=== PATIENT | female | born 1965 | race Two or more races ===

== ENCOUNTER 2018-06-22 05:22 | Day surgery (SDC) | payer OTHER ==
[2018-06-22] VITALS (13 sets, daily range): BP systolic 102–124; BP diastolic 53–68
[~2018-06-22] VITALS: Ht 167.6 cm; Wt 72.6 kg
[~2018-06-22 05:22] MED LIST: SYNTHROID88 MCG ORAL
[2018-06-22] MEDS ORDERED: NS Irrig 4000ml IRRIG ONE (05:56)
[2018-06-22] MEDS ORDERED: LR 1000ml ONE (05:56)
[2018-06-22] MEDS ORDERED: celeBREX 200mg Cap **SURGERY PATIENTS ONLY ORAL ONE (06:00)
[2018-06-22] MEDS ORDERED: ceFAZolin 1gm IVPB IVPB ONE ×2 (06:00)
[2018-06-22] MEDS ORDERED: oxyCONTIN 20mg tab ORAL ONE (06:00)
[2018-06-22] MEDS ORDERED: Ketorolac 30mg Inj ONE ×2 (06:29→06:43)
[2018-06-22] MEDS ORDERED: Propofol 200mg/20ml IV ONE (06:29)
[2018-06-22] MEDS ORDERED: Lidocaine 1% MPF 10mg/ml 5ml ONE (06:29)
[2018-06-22] MEDS ORDERED: Midazolam 2mg/2ml Inj ONE (06:29)
[2018-06-22] MEDS ORDERED: fentaNYL 100 mcg/2 mL IV ONE (06:29)
[2018-06-22] MEDS ORDERED: Kenalog-40 1ml Vial ONE (06:43)
[2018-06-22] MEDS ORDERED: Morphine Sulfate PF 10 ML ONE (06:43)
[2018-06-22] MEDS ORDERED: Bupivacaine w/Epi 0.25% 30ml Vial INJ ONE (06:43)
[2018-06-22] MEDS ORDERED: Lidocaine 1% 10mg/ml/Epi 0.005mg/ml 30ml vial INJ ONE (06:43)
[2018-06-22] MEDS ORDERED: Bupivacaine 0.5% Inj 30 ml vial INJ ONE (06:43)
[2018-06-22] MEDS ORDERED: Dexamethasone 4mg/ml vial ONE (06:58)
--- NOTE | 2018-06-22 06:59 | Pre-Procedure Note/Attestation ---
Pre-Procedure Note/Attestation Complete Prior to Procedure Planned Procedure: left - knee arthroscopy, Procedure Narrative: knee arthroscopy, possible menisectomy/synovectomy Attestation I attest that I discussed the nature of the procedure; its benefits; risks and complications; and alternatives (and the risks and benefits of such alternatives ), prior to the procedure, with the patient (or the patient's legal sales representative uniforms). I attest that, if there was a reasonable possibility of needing a blood transfusion, the patient (or the patient's legal sales representative uniforms) was given the [facility] standardized written summary, pursuant to the [place] Blood Safety Act ([place] Health and Safety Code # 1645, as amended). I attest that I re-evaluated the patient just prior to the surgery and that there has been no change in the patient's H&P, except as documented below: Real Chu MD Jun 22, 2018 06:59
--- NOTE | 2018-06-22 07:00 | Operative Note - PDOC ---
Operative Note Operative Note Pre-op Diagnosis: left knee internal derangement Post-op Diagnosis: same as pre-op plus Operative Findings: consistent w/pre-op dx studies Anesthesia: MAC Specimen: none Complications: none Condition: stable Estimated Blood Loss: none Implant(s) used?: No Real Chu MD Jun 22, 2018 07:00
[2018-06-22] MEDS ORDERED: Duramorph PF 10mg/10ml amp EPIDUR ONE (07:14)
[2018-06-22] MEDS ORDERED: LR 1000ml 1,000 ML IVLG SCH (07:33)
--- NOTE | 2018-06-22 07:33 | Anethesia Preoperative Eval ---
Anesthesia Pre-op PMH/ROS General Date of Evaluation: Jun 22, 2018 Time of Evaluation: 06:52 Anesthesiologist: Olivia ASA Score: ASA 2 Mallampati Score Class I : Soft palate, uvula, fauces, pillars visible Class II: Soft palate, uvula, fauces visible Class III: Soft palate, base of uvula visible Class IV: Only hard plate visible Mallampati Classification: Class II Surgeon: Vlad Diagnosis: L knee pain Surgical Procedure: L knee scope Anesthesia History: PONV Family History: no anesthesia problems Allergies: Coded Allergies: LATEX (Verified Allergy, Intermediate, 06/21/18) ITCHING, SKIN BECOMES RED Patient NPO?: Yes Past Medical History Cardiovascular: Denies: HTN, CAD, [place], valve dz, arrhythmia, other Pulmonary: Denies: asthma, COPD, [place], other Gastrointestinal/Genitourinary: Reports: GERD; Denies: CRI, ESRD, other Neurologic/Psychiatric: Reports: depression/anxiety; Denies: dementia, CVA, TIA, other Endocrine: Reports: hypothyroidism; Denies: DM, steroids, other HEENT: Denies: cataract (L), cataract (R), glaucoma, [place] (L[place] (R), other Hematology/Immune: Reports: other - R breast CA; Denies: anemia, DVT, bleeding disorder Musculoskeletal/Integumentary: Denies: OA, RA, DJD, DDD, edema, other PMH Narrative: as above PSxH Narrative: Bilateral mastectomy with breasts reconstruction Anesthesia Pre-op Phys. Exam Physician Exam Last Vital Signs Date Time Temp Pulse Resp B/P (MAP) Pulse Ox O2 Delivery O2 Flow Rate FiO2 06/22/18 05:58 97.0 63 20 106/65 98 Room Air Constitutional: NAD Neurologic: CN 2-12 intact Cardiovascular: RRR, no M/R/G Respiratory: CTA Gastrointestinal: S/NT/ND Airway Exam Mallampati Score: Class II MO: full Neck: flexible ROM: limited Teeth: intact Dentures: no upper, no lower Anesthesia Pre-op A/P Labs see chart Risk Assessment & Plan Assessment: ASA 2 Plan: GA with LMA Status Change Before Surgery: No Pre-Antibiotics Drug: Ancef 1 gr. Given Within 1 Hr of Incision: Yes Time Given: 07:12 Jan Baker MD Jun 22, 2018 07:33
[2018-06-22] MEDS ORDERED: Ketorolac 30mg Inj IV PRN (07:45)
[2018-06-22] MEDS ORDERED: Meperidine 50mg/ml Inj(FOR RIGORS ONLY) IV PRN (07:45)
[2018-06-22] MEDS ORDERED: Metoclopramide 10mg/2ml Inj IVP PRN (07:45)
--- NOTE | 2018-06-22 07:53 | Immediate Post-Op Evaluation ---
Immediate Post-Op Evalulation Immediate Post-Op Evalulation Procedure: L knee arthroscopy meniscectomy Date of Evaluation: Jun 22, 2018 Time of Evaluation: 07:51 IV Fluids: 800 Blood Products: none Estimated Blood Loss: min Urinary Output: none Blood Pressure Systolic: 103 Blood Pressure Diastolic: 56 Pulse Rate: 88 Respiratory Rate: 20 O2 Sat by Pulse Oximetry: 99 Temperature (Fahrenheit): 97.5 Pain Score (1-10): 1 Nausea: No Vomiting: No Complications none Patient Status: reacts, patent, none Hydration Status: adequate Jan Baker MD Jun 22, 2018 07:53
[2018-06-22] MEDS: DiphenhydrAMINE 50mg/ml Inj IVP PRN ×2 (09:05→09:29)
--- NOTE | 2018-06-22 09:49 | 48 Hour Post Anesthesia Eval ---
Post Anesthesia Evaluation Procedure: L knee arthroscopy meniscectomy Date of Evaluation: Jun 22, 2018 Time of Evaluation: 09:48 Blood Pressure Systolic: 116 0: 72 Pulse Rate: 68 Respiratory Rate: 20 Temperature (Fahrenheit): 97.6 O2 Sat by Pulse Oximetry: 98 Airway: patent Nausea: No Vomiting: No Pain Intensity: 2 Hydration Status: adequate Cardiopulmonary Status: stable Mental Status/LOC: patient returned to baseline Follow-up Care/Observations: n/a Post-Anesthesia Complications: none Follow-up care needed: ready to discharge Jan Baker MD Jun 22, 2018 09:49
[2018-06-22] MEDS ORDERED: Tylenol #3 tab (300mg/30mg) ORAL PRN (15:01)
[2018-06-22] MEDS ORDERED: D5 1/2NS 1,000 ML IV SCH (15:01)
[2018-06-22] MEDS ORDERED: HYDROmorphone 1mg/ml Carpuject SUBQ PRN (15:01)
[2018-06-22] MEDS ORDERED: Norco 5mg/325mg tab ORAL PRN (15:01)
--- NOTE | 2018-06-22 17:00 | Operative Note - Dictated ---
DATE OF OPERATION: 06/22/2018 PREOPERATIVE DIAGNOSIS: Left knee medial meniscus tear. POSTOPERATIVE DIAGNOSES: 1. Left knee medial meniscus tear. 2. Left knee medial compartment chondral damage. 3. Hypertrophic synovial tissue/fat pad of medial, lateral, patellofemoral compartment. 4. Partial tear, ACL. PROCEDURE: 1. Left knee arthroscopic partial medial meniscectomy. 2. Synovectomy/fixation of fat pad in medial, lateral, patellofemoral compartment. 3. Chondroplasty, medial femoral condyle. SURGEON: Real Chu M.D. ANESTHESIA: MAC with local. INDICATION FOR PROCEDURE: The patient is a pleasant female who has had progressive right knee pain. She had MRI, which showed a meniscal tear. She elected to undergo right knee arthroscopic partial meniscectomy, synovectomy, chondroplasty. Risks, limitations, expectations, and complications of procedure were discussed in detail. All questions addressed. DESCRIPTION OF PROCEDURE: After informed consent was obtained, the patient was brought to the operating room. The patient was placed under general anesthesia. Time-out was performed. The left leg was prepped and draped in sterile manner. A 20 mL of Marcaine was injected. Portal sites were marked and injected with 0.25% Marcaine with epinephrine. Inferolateral stab incision was then made. Trocar was introduced into the knee joint. There was hypertrophic fat pad in the retropatellar space area. Medial compartment was entered. There was some grade 3 chondral damage and it measured 2 x 3 mm in the medial femoral condyle. There was a tear of the posterior horn of medial meniscus. Medial working portal was established. Partial medial meniscectomy was performed using combination of biters and vicki. Gentle chondroplasty was performed with synovectomy and excision of the fat pad in the medial compartment. Intercondylar notch, lateral compartment was entered. There was partial tearing of the ACL which was debrided in majority of more than 75% with ACL remaining intact. Lateral compartment was entered, it was free of meniscal or chondral damage. The camera was then repositioned in patellofemoral compartment and excision of the fat pad and synovial tissue was completed. Instruments were removed. Portal sites were closed with 3-0 Monocryl sutures. The patient was awoken and taken to recovery room with stable vital signs. ESTIMATED BLOOD LOSS: None. COMPLICATIONS: None. SPECIMENS: None. Real Chu M.D. DR: Sonia JOB#: [id number] CC: [email or web address]
== END 2018-06-22 10:55 | disposition home or self-care (01) ==
LOC: SUR 05:22
DX: M23.222 Derangement of posterior horn of medial meniscus due to old tear or injury, left knee (principal); M94.9 Disorder of cartilage, unspecified; M67.262 Synovial hypertrophy, not elsewhere classified, left lower leg; M79.4 Hypertrophy of (infrapatellar) fat pad; E03.9 Hypothyroidism, unspecified; K21.9 Gastro-esophageal reflux disease without esophagitis; F32.9 Major depressive disorder, single episode, unspecified; F41.9 Anxiety disorder, unspecified; M25.50 Pain in unspecified joint; Z85.3 Personal history of malignant neoplasm of breast; Z91.040 Latex allergy status
CPT/HCPCS: 29881; J0690; J1100; J1200; J1885; J2250; J2405; J2704; J3010; J3301; J3490; 94003; 94150